=== PATIENT | male | born 2000 | race Caucasian/White ===

== ENCOUNTER 2024-02-21 02:54 | Inpatient (IN) ==
[2024-02-21] MEDS: KETOROLAC TROMETHAMINE 15 MG/ML VIAL IV ONE (03:34)
[2024-02-21] MEDS: HYDROmorphone INJ 0.5 MG/0.5 ML SYR IV PRN (03:34)
--- NOTE | 2024-02-21 03:36 | Emergency Department Note ---
Impression & Plan Right groin pain ED Provider Note NAME: SAM WOODS AGE: 23 SEX: Male INFORMANT: Patient ED PROVIDER(S): Tremaine Mcclure MD CHIEF COMPLAINT: Right groin pain PLAN: Disposition: Still a patient Outpatient prescription management: none Referral: [facility] MEDICAL DECISION MAKING: Patient presented because of right groin pain. He was quite uncomfortable. No signs of infection on examination. No hernia or abnormality on examination. IV was established. X-rays ordered. Patient was treated with Toradol and a dose of Dilaudid for symptom control. On reassessment the patient did feel better transiently but the pain came back. He is having difficulty moving his leg and ambulating. He had a leukocytosis on CBC and chemistries were unremarkable. Lyme negative. Trace hematuria was noted on urinalysis but on second questioning again the patient denied any urinary symptoms, flank pain, abdominal pain. He and I discussed MRI to further evaluate the acute hip/groin pain as well as a leukocytosis. Suspect musculoskeletal source. MRI is pending. Patient was signed out to Dr. Mesa at the change of shift. I refer you to the EMR for further details. Care/management discussed with: none Level of care consideration(s): Pending. Triage Nursing notes: reviewed and agree them. Vital Signs: reviewed and remarkable for no significant abnormalities Additional History obtained from: none Chronic Medical/Social Conditions affecting care: none Prior/ Outside/ External records reviewed: none Differential Diagnosis: Muscle tear, fracture, dislocation, neurovascular compromise, compartment syndrome, soft tissue injury, as well as other pathologies. Diagnostics, independently interpreted by me: ECG: none Cardiac Monitoring: Cardiac monitoring ordered by me: The patient was placed on continuous cardiac monitoring and observed. It revealed a normal sinus rhythm at 83 beats per minute without ectopy or evidence of dysrhythmia. Medical decision rules: none Imaging studies: X-ray imaging of the right hip is negative for fracture or dislocation. HPI: 23 year old Male arrives for evaluation of right groin pain. This started 2 days ago and is worsening. The patient also notes the following associated symptoms, limited range of motion of the right hip. Patient also notes difficulty walking secondary to the pain. The patient has tried 1 ibuprofen for relieving factors. Current pain is rated as 7/10. Patient states he was walking 2 days ago and fell to slight pop in his leg. No falls or direct trauma. Pt denies LOC, headache, fevers, chills, diaphoresis, visual changes, neck pain, chest pain, breathing difficulties, nausea, vomiting, abdominal pain, back pain, bowel or bladder problems, testicular pain, urinary symptoms, numbness, weakness, lymphadenopathy, rash, or other complaints.. PAST MEDICAL HISTORY: See Below, PAST SURGICAL HISTORY: See Below, SOCIAL HISTORY: See Below, [employer] student HOME MEDICATIONS: See Below ALLERGIES: See Below VITALS: See Below PHYSICAL EXAMINATION: GENERAL: Awake, alert, uncomfortable-appearing, in no distress HENT: Normocephalic, atraumatic. Oropharynx unremarkable. EYES: Normal conjunctiva. Sclera non-icteric. NECK: Inspection normal. Non-tender. Supple. No nuchal rigidity. FROM. No masses. RESPIRATORY: Clear to auscultation. No wheezes. No rales. Normal respiratory effort. CARDIAC: Normal rate. Normal rhythm. No murmurs. No rubs. Extremities warm and well perfused. Pulses equal. No JVD. GI: Soft, non-distended. No tenderness to palpation. No rebound or guarding. No masses. RECTAL: Deferred. : Normal male. Normal scrotum. No hernia. No testicular tenderness to palpation. MUSCULOSKELETAL: Atraumatic. No joint edema. Examination of the left lower extremity reveals no gross abnormalities. No associated tenderness palpation. Examination of the right lower extremity reveals an unremarkable foot, lower leg, knee and thigh. Palpation of the very proximal inner thigh around the abductors is tender. There is no erythema or fluctuance. No crepitus. Range of motion of the right hip is limited secondary to pain. There is no tenderness over the greater trochanter on the right side. LOWER EXTREMITIES: Calves are equal size bilaterally and non-tender. No edema. No discoloration. NEURO: Normal sensorium. No sensory or motor deficits noted. SKIN: No rash or jaundice noted. PROCEDURES: none CRITICAL CARE: none OBSERVATION NOTE: none Past Med/Surg History Problem List (Updated 02/21/24 @ 03:36 by Tremaine Mcclure MD) Right groin pain (Acute) Social History Smoking Status: Never smoker Preferred Language: Guatemalan Feels Safe at Home: Yes Allergies Allergies Allergy/AdvReac Type Severity Reaction Status Date / Time No Known Allergies Allergy Unverified 02/21/24 03:33 Results & Data (ED) Vital Signs Vital Signs - 24 hr 02/21/24 02:55 02/21/24 05:59 Temperature 36.8 C Temperature Source Oral Pulse Rate 83 Pulse Rate [Finger] 70 Pulse Rhythm Regular Pulse Rhythm [Finger] Regular Pulse Strength Normal Pulse Strength [Finger] Normal Respiratory Rate 20 17 Respiratory Effort / Characteristics Non-Labored Non-Labored Respiratory Depth Normal Normal Respiratory Pattern Regular Regular Blood Pressure 154/92 H Blood Pressure [Right Arm] 147/93 H Blood Pressure Mean 112 Blood Pressure Mean [Right Arm] 111 Blood Pressure Position Sitting Blood Pressure Position [Right Arm] Lying Pulse Oximetry 96 97 Oxygen Delivery Method Room Air Room Air Sepsis Recent Fever Within 48 Hours No Sepsis New/Unexplained Change in Mental Status No Sepsis Action Taken by Nursing No Action Required Laboratory Data 02/21/24 03:30 02/21/24 03:30 Lab Results 02/21/24 02/21/24 Range/Units 03:30 Unknown WBC 13.60 H (4.8-10.8) K/ul RBC 4.97 (4.70-6.10) M/uL Hgb 15.1 (14.0-18.0) g/dl Hct 43.5 (42.0-52.0) % MCV 87.5 (80.0-100.0) fL MCH 30.4 (25.0-34.0) pg MCHC 34.7 (32.0-36.0) g/dL RDW Std Deviation 39.8 (36.4-46.3) fL RDW Coeff of Bin 12.6 (11.5-14.5) % Plt Count 177 (130-400) K/uL MPV 11.7 (9.4-12.4) fL Immature Gran % (Auto) 0.6 % Neut % (Auto) 87.5 % Lymph % (Auto) 5.7 % [place] % (Auto) 6.0 % Eos % (Auto) 0.0 % Baso % (Auto) 0.2 % Neut # (Auto) 11.91 H (1.40-6.50) K/uL Lymph # (Auto) 0.77 L (1.20-3.40) K/uL [place] # (Auto) 0.81 H (0.11-0.59) K/uL Eos # (Auto) 0.00 (0.00-0.50) K/uL Baso # (Auto) 0.03 (0.00-0.20) K/uL Immature Gran # (Auto) 0.08 (0.01-0.20) K/uL Sodium 134 L (136-145) mmol/L Potassium 4.0 (3.5-5.1) mmol/L Chloride 105 (98-107) mmol/L Carbon Dioxide 20 L (21-32) mmol/L Anion Gap 9 (3-11) BUN 19 (6-23) mg/dl Creatinine 0.87 (0.6-1.4) mg/dl Est Cr Clr Drug Dosing 158.0 ml/min eGFR 122.80 BUN/Creatinine Ratio 21.8 H (10-20) Glucose 148 H (70-99(Fasting)) mg/dl Calcium 9.6 (8.6-10.3) mg/dl Total Bilirubin 1.2 H (0.2-1.0) mg/dl AST 14 (13-39) U/L ALT 10 (7-52) U/L Alkaline Phosphatase 99 (34-104) U/L Total Protein 7.7 (6.0-8.3) gm/dl Albumin 4.6 (3.4-5.0) gm/dl Globulin 3.1 (2.5-4.0) gm/dl Albumin/Globulin Ratio 1.5 (0.9-2) Urine Color Yellow Urine Appearance Cloudy A (Clear) Urine pH 5.5 (4.5-7.5) Ur Specific [place] 1.029 (1.000-1.030) Urine Protein Negative (Negative) Urine Glucose (UA) 1+ H (Negative) Urine Ketones Trace H (Negative) Urine Blood 1+ H (Negative) Urine Nitrite Negative (Negative) Urine Bilirubin Negative (Negative) Urine Urobilinogen Negative (Negative) Ur Leukocyte Esterase Negative (Negative) Urine WBC (Auto) 0-5 (0-5) /hpf Urine RBC (Auto) 3-5 H (0-2) /hpf U Hyaline Cast (Auto) 0-2 (0-2) /lpf U Epithel Cells (Auto) 0-2 (0-2) /hpf Urine Bacteria (Auto) None Seen (None Seen) Calcium Oxalate Crystal Present A (None Prsent) Urine Mucus Present A (None Prsent) Lyme Disease Screen Negative (Negative) Administered Medications Hydromorphone HCl (Hydromorphone Inj 0.5 Mg/0.5 Ml Syr) 0.5 mg IV Q20M PRN PRN Reason: Severe Pain (Rating 7,8,9,10) Stop: 03/06/24 03:15 Last Admin: 02/21/24 05:59 Dose: 0.5 mg Documented By: Admin: 02/21/24 03:34 Dose: 0.5 mg Documented By: CARMEN Discontinued Medications Ketorolac Tromethamine (Ketorolac Tromethamine 15 Mg/Ml Vial) 10 mg IV NOW ONE Stop: 02/21/24 03:17 Last Admin: 02/21/24 03:34 Dose: 10 mg Documented By: CARMEN Discharge Plan Visit Data Chief Complaint: Groin Pain Stated Complaint: GROIN PAIN ED Provider: Sam Mesa Discharge Problem: Right groin pain Forms Stand Alone Forms: [facility] Referrals Referrals: [facility] [Primary Care Provider] -
[2024-02-21 04:09] LABS: Albumin Globulin Ratio 1.5 (0.9-2); Albumin Level 4.6 gm/dl (3.4-5.0); BUN Creatinine Ratio 21.8 (10-20); Bilirubin,Total 1.2 mg/dl (0.2-1.0); Calcium 9.6 mg/dl (8.6-10.3); Globulin 3.1 gm/dl (2.5-4.0); Total Protein 7.7 gm/dl (6.0-8.3)
[2024-02-21 04:20] LABS: Basophils # (auto) 0.03 K/uL (0.00-0.20); Basophils % (auto) 0.2 %; Hematocrit (blood only) 43.5 % (42.0-52.0); Hemoglobin 15.1 g/dl (14.0-18.0); Immature Granulocytes # (auto) 0.08 K/uL (0.01-0.20); Immature Granulocytes % (auto) 0.6 %; Lymphocytes # (auto) 0.77 K/uL (1.20-3.40); Lymphocytes % (auto) 5.7 %; Mean Corpuscular Hemoglobin 30.4 pg (25.0-34.0); Mean Corpuscular Hgb Conc 34.7 g/dL (32.0-36.0); Mean Corpuscular Volume 87.5 fL (80.0-100.0); Mean Platelet Volume 11.7 fL (9.4-12.4); Monocytes # (auto) 0.81 K/uL (0.11-0.59); Neutrophils # (auto) 11.91 K/uL (1.40-6.50); Neutrophils % (auto) 87.5 %; Platelet Count 177 K/uL (130-400); RDW Coefficient of Variation 12.6 % (11.5-14.5); RDW Standard Deviation 39.8 fL (36.4-46.3); Red Blood Count 4.97 M/uL (4.70-6.10)
[2024-02-21 05:24] LABS: Appearance Urine Cloudy (Clear); Bacteria Urine Automated None Seen (None Seen); Bilirubin Urine Negative (Negative); Blood Urine 1+ (Negative); Cast Urine Automated 0-2 /lpf (0-2); Color Urine Yellow; Epithelial Cell Urine Auto 0-2 /hpf (0-2); Glucose Urine UA 1+ (Negative); Ketones Urine Trace (Negative); Leukocyte Esterase Urine Negative (Negative); Nitrite Urine Negative (Negative); Protein Urine Negative (Negative); Specific Gravity Urine 1.029 (1.000-1.030); Urobilinogen Urine Negative (Negative); WBC Urine Automated 0-5 /hpf (0-5); pH Urine 5.5 (4.5-7.5)
[2024-02-21 05:39] LABS: Calcium Oxalate Crystals Urine Present (None Prsent); Mucus Urine Present (None Prsent)
--- NOTE | 2024-02-21 06:36 | Emergency Department Note ---
ED Visit Note Patient is a 23-year-old male who presents to the ER for right hip pain. He was seen and evaluated by Dr. Mcclure. Labs were obtained and showed a mild leukocytosis. No significant anemia. BMP with mild hyponatremia at 134. LFTs bilirubin was unremarkable. Urine with a small amount of hematuria. X-rays were unremarkable and Lyme disease was negative. Patient was signed out to me awaiting MRI. Current disposition per Dr. Mcclure is if MRI shows no other findings other than fracture although doubtful with neg xry. patient will be discharged and follow-up as an outpatient with orthopedics. MRI resulted and showed no acute fracture and the only abnormality was a small right hip joint effusion with intra-articular debris. I discussed this with Dr. Elizabeth who reviewed the images and blood work. He believes that this is likely not infectious but with a slight elevation in sed CRP and white count he recommended IR aspiration. I spoke with Reginald Bender at the request of orthopedics and he will aspirate the right hip. Spoke with orthopedics to evaluate the patient and they will admit the patient due to worsening pain. They did request steroids. Steroids were given. Patient was admitted to orthopedics. Please see their note for further disposition. .
--- NOTE | 2024-02-21 07:01 | XRay Report ---
XR hip RT min 2V HISTORY: 23 years-old Male right groin pain acute pain of the right hip COMPARISON: None TECHNIQUE: 2 views of the right hip FINDINGS: No acute fracture, dislocation or avascular necrosis. Unremarkable soft tissues. IMPRESSION: No acute fracture or dislocation. ACT 112: Negative or not required by law. The above report was generated using voice recognition software. It may contain grammatical, syntax o r spelling errors. Electronically signed by: Easton Parra M.D. 02/21/2024 6:59 AM
--- NOTE | 2024-02-21 08:43 | Magnetic Resonance Report ---
MR hip RT wo con CLINICAL HISTORY: 23 years-old Male with severe right hip/groin pain, elevated WBC. COMPARISON: Radiographs of same day. TECHNIQUE: Multiplanar, multi sequence MRI of the right hip was performed without intravenous contras t. FINDINGS: LABRUM: To the extent that it is visualized, the acetabluar labrum is normal. There is no evidence for a labral tear, chondrolabral separation or paralabral cyst. BONE MARROW: Bone marrow signal is within normal limits. No evidence of avascular necrosis, fractur e or transient osteoporosis. BURSAE: There is no evidence for iliopsoas or trochanteric bursitis. HIP JOINT: No significant joint space narrowing or chondromalacia. There is a small right hip joint effusion with intra-articular debris. Trace edema noted along the inferior joint capsule, likely rela fabiana to the joint effusion. MUSCLES: Muscular signal and morphology is within normal limits. SCIATIC NERVE: The morphology and signal characteristics of the sciatic nerve appear normal. IMPRESSION: 1. No acute fracture, bone marrow edema, stress reaction or avascular necrosis. 2. The visualized tendons, ligaments and acetabular labrum appear intact. 3. Small right hip joint effusion with intra-articular debris. This is nonspecific and should be nesha elated with patient history and laboratory analysis. ACT 112: Negative or not required by law. The above report was generated using voice recognition software. It may contain grammatical, syntax o r spelling errors. Electronically signed by: Easton Parra M.D. 02/21/2024 8:42 AM
[2024-02-21] MEDS: predniSONE 50 MG TAB PO STA (09:20)
[2024-02-21 09:28] LABS: C Reactive Protein 0.79 mg/dl (0-0.5)
--- NOTE | 2024-02-21 13:59 | Fluoroscopy Report ---
Fluoroscopic guided right hip joint injection/aspiration INDICATION: Right hip pain; right hip joint effusion PROCEDURE: Procedure and risks were explained. Informed consent was obtained. A final timeout was com pleted. The patient was placed supine on the fluoroscopic exam table. The right hip was prepped and d raped in sterile fashion. 1% lidocaine was utilized for skin anesthesia. Utilizing fluoroscopic guidance, a 20-gauge spinal needle was advanced into the right hip joint. Init ial aspiration did not yield any joint fluid. Approximately 1 mL of iodinated contrast was injected c onfirming our intra-articular needle position. Permanent fluoroscopic spot images and loops were obta ined. Next, approximately 4 mL of bloody joint fluid was aspirated and sent to the lab for analysis. The needle was removed and Band-Aid applied. The patient tolerated the procedure well. Total fluoroscopy time 14 seconds. Study dose is 8.22 mGy. IMPRESSION: Right hip joint injection/aspiration as detailed above. Performed, dictated, and signed by Neil Bender PA-C; to be co-signed by Dr. Mir Narayanan. Electronically signed by: Mir Narayanan M.D. 02/21/2024 5:13 PM
--- NOTE | 2024-02-21 14:27 | Orthopedic Consultation ---
Date of Consultation February 21, 2024 Assessment & Plan (1) Effusion of hip: Discussed with the patient and his mother that he has an effusion in his right hip. His physical exam and laboratory results are most consistent with toxic synovitis likely secondary to a recent gastrointestinal illness. However, we did request an aspiration in order to rule out infection. This was done this afternoon. We will admit him to the hospital and follow the results of the aspiration. Will keep him n.p.o. until we know for sure were not doing surgery on his right hip later today. (2) Right groin pain: (3) Acute hip pain: History of Present Illness History of Present Illness 23 year old Male arrives for evaluation of right groin pain. This started 2 days ago and is worsening. The patient also notes the following associated symp toms, limited range of motion of the right hip. Patient also notes difficulty walking secondary to the pain. The patient has tried 1 ibuprofen for relieving factors. Current pain is rated as 7/10. Patient states he was walking 2 days ago and felt a slight pop in his leg. No falls or direct trauma. Pt denies LOC, headache, fevers, chills, diaphoresis, visual changes, neck pain, chest pain, breathing difficulties, nausea, vomiting, abdominal pain, back pain, bowel or bladder problems, testicular pain, urinary symptoms, numbness, weakness, lymphadenopathy, rash, or other complaints. Orthopedics was consulted for evaluation and management. Patient was seen and examined the emergency room. He reports he did have a gastrointestinal illness about 3 weeks ago with diarrhea that is since resolved. No other recent illnesses. Has not had any fevers or chills. He has been able to walk on it although with difficulty. No numbness or tingling down the leg. Allergies Allergy/AdvReac Type Severity Reaction Status Date / Time No Known Allergies Allergy Unverified 02/21/24 03:33 Home Medications Medication Instructions Recorded Confirmed Type sertraline 100 mg tablet 100 mg PO QAM 02/21/24 02/21/24 History Patient History Social History Smoking Status: Never smoker Preferred Language: Gibralt[place] Feels Safe at Home: Yes Physical Exam Physical Exam: In general he does not appear systemically ill. Alert and oriented x 3. Right hip exam reveals the patient to be unable to do a straight leg raise. Actively he can flex the hip to about 45 degrees. Passively I can get him to about 70 degrees. External rotation is about 35 degrees, internal rotation about 20 degrees. He tolerates gentle circumduction of the hip with only mild discomfort. He is distally neurovascularly intact firing EHL, FHL he ate, tib ant and gastrocsoleus. Sensory intact to light touch dorsal and plantar aspects of the foot. Palpable dorsalis pedis and posterior tibial pulses. Skin is warm and well-perfused. Results & Data Vital Signs (Past 12 Hours) Vital Signs Temp Pulse Pulse Resp BP BP Pulse Ox 02/21/24 12:42 69 02/21/24 10:31 75 17 147/78 H 96 02/21/24 10:00 68 22 122/99 98 02/21/24 09:31 68 16 157/85 H 98 02/21/24 09:01 63 15 148/81 H 99 02/21/24 08:30 66 19 97 02/21/24 08:14 73 02/21/24 08:00 71 15 140/83 95 02/21/24 07:58 74 16 152/87 H 95 02/21/24 05:59 70 17 147/93 H 97 02/21/24 02:55 36.8 C 83 20 154/92 H 96 O2 Del Method 02/21/24 12:42 02/21/24 10:31 02/21/24 10:00 02/21/24 09:31 02/21/24 09:01 02/21/24 08:30 02/21/24 08:14 02/21/24 08:00 02/21/24 07:58 Room Air 02/21/24 05:59 Room Air 02/21/24 02:55 Room Air Laboratory Results Laboratory Results - last 24 hr 02/21/24 02/21/24 03:30 Unknown WBC 13.60 H RBC 4.97 Hgb 15.1 Hct 43.5 MCV 87.5 MCH 30.4 MCHC 34.7 RDW Std Deviation 39.8 RDW Coeff of Bin 12.6 Plt Count 177 MPV 11.7 Immature Gran % (Auto) 0.6 Neut % (Auto) 87.5 Lymph % (Auto) 5.7 [place] % (Auto) 6.0 Eos % (Auto) 0.0 Baso % (Auto) 0.2 Neut # (Auto) 11.91 H Lymph # (Auto) 0.77 L [place] # (Auto) 0.81 H Eos # (Auto) 0.00 Baso # (Auto) 0.03 Immature Gran # (Auto) 0.08 ESR 24 H Sodium 134 L Potassium 4.0 Chloride 105 Carbon Dioxide 20 L Anion Gap 9 BUN 19 Creatinine 0.87 Est Cr Clr Drug Dosing 158.0 eGFR 122.80 BUN/Creatinine Ratio 21.8 H Glucose 148 H Calcium 9.6 Total Bilirubin 1.2 H AST 14 ALT 10 Alkaline Phosphatase 99 C-Reactive Protein 0.79 H Total Protein 7.7 Albumin 4.6 Globulin 3.1 Albumin/Globulin Ratio 1.5 Urine Color Yellow Urine Appearance Cloudy A Urine pH 5.5 Ur Specific [place] 1.029 Urine Protein Negative Urine Glucose (UA) 1+ H Urine Ketones Trace H Urine Blood 1+ H Urine Nitrite Negative Urine Bilirubin Negative Urine Urobilinogen Negative Ur Leukocyte Esterase Negative Urine WBC (Auto) 0-5 Urine RBC (Auto) 3-5 H U Hyaline Cast (Auto) 0-2 U Epithel Cells (Auto) 0-2 Urine Bacteria (Auto) None Seen Calcium Oxalate Crystal Present A Urine Mucus Present A Fluid Comment Synovial Source Pending Synovial Color Pending Synovial Appearance Pending Synovial Crystals Pending Lyme Disease Screen Negative ESR slightly elevated at 24, CRP slightly elevated at 0.79. White count slightly elevated 13.6. Aspiration results pending Diagnostic Findings MRI of the right hip done earlier today independently interpreted by me showed evidence of a right hip effusion. No fracture. No labrum tear. Some low signal punctate debris in the inferior aspect of the hip. Do not see a lot of synovitis.
[2024-02-21] MEDS ORDERED: ONDANSETRON INJ 2 MG/ML 2 ML VIAL IV PRN (14:38)
[2024-02-21] MEDS ORDERED: oxyCODONE/ACETAMINOPHEN 5mg/325mg TAB PO PRN (14:38)
[2024-02-21] MEDS ORDERED: KETOROLAC 30 MG/ML VIAL IV PRN (14:38)
[2024-02-21 14:42] LABS: Appearance Synovial Fluid Hazy; Color Synovial Fluid Red; Mononuclear WBC Synovial 7.2 %; Polynuclear WBC Synovial 92.8 %; RBC Synovial Fluid Auto 540000 /uL; Source Synovial Fluid Hip; WBC Synovial Fluid Auto 62860 /ul (0-200)
[2024-02-21] MEDS: DOCUSATE SODIUM 100 MG CAP PO SCH (20:59)
--- NOTE | 2024-02-22 06:52 | Orthopedic Progress Note ---
Date of Service February 22, 2024 Assessment & Plan (1) Effusion of hip: Plan: -Discussed with the patient Gram stain was negative for any organisms. -The patient may weight-bear as tolerated with use of crutches or walker -Patient will remain n.p.o. at this time until further evaluation and culture results -We will follow-up for further culture results which hopefully will result later today -Clinically the patient is having less pain than he was having yesterday however would like to see more definitive culture results, still possibility patient will require irrigation and debridement of his right hip -Patient will be discussed with Dr. Pradhan Admission and Anticipated Discharge Date Admission Date: February 21, 2024 Orthopedic Progress Note Subjective: Patient seen and evaluated at bedside. He is currently resting comfortably in bed. He is in no acute distress. He states that the pain in his hip is getting better. He denies any numbness or tingling in the right lower extremity. He denies any fevers or chills, he denies any chest pain or shortness of breath. Overall he feels like the hip is getting slightly better. He has not been up out of bed or put any weight on the leg yet. Objective: Right lower extremity exam: Skin about the right lower extremity is clean dry and intact without any erythema, palpable warmth, or effusion The patient is able to actively flex his knee to approximate the 100 degrees, hip flexion to approximately 80 degrees without significant hip pain. Passively I am able to flex him to about 100 degrees at the hip with external rotation about 30 degrees internal wishes of about 20 degrees with mild pain at most. No pain with logroll With hip flexed about 100 degrees and passive circumduction patient has minimal to mild pain at most. Sensation intact light touch L4-S1 dermatomes DP/PT pulses 1+ GS/TA/EHL/FHL 5/5 strength
[2024-02-22 07:37] VITALS: BP 142/77; PULSE 65; RESP 18; TEMP 99.5; O2SAT 99
[2024-02-22] MEDS: SERTRALINE HCL 100 MG TABLET PO SCH (09:45)
--- NOTE | 2024-02-22 12:53 | Discharge Summary ---
Date of Service February 22, 2024 Admission HPI Per Admitting Provider 23 year old Male arrives for evaluation of right groin pain. This started 2 days ago and is worsening. The patient also notes the following associated symptoms, limited range of motion of the right hip. Patient also notes difficulty walking secondary to the pain. The patient has tried 1 ibuprofen for relieving factors. Current pain is rated as 7/10. Patient states he was walking 2 days ago and felt a slight pop in his leg. No falls or direct trauma. Pt denies LOC, headache, fevers, chills, diaphoresis, visual changes, neck pain, chest pain, breathing difficulties, nausea, vomiting, abdominal pain, back pain, bowel or bladder problems, testicular pain, urinary symptoms, numbness, weakness, lymphadenopathy, rash, or other complaints. Orthopedics was consulted for evaluation and management. Patient was seen and examined the emergency room. He reports he did have a gastrointestinal illness about 3 weeks ago with diarrhea that is since resolved. No other recent illnesses. Has not had any fevers or chills. He has been able to walk on it although with difficulty. No numbness or tingling down the leg. Admission Exam Per Admitting Provider In general he does not appear systemically ill. Alert and oriented x 3. Right hip exam reveals the patient to be unable to do a straight leg raise. Actively he can flex the hip to about 45 degrees. Passively I can get him to about 70 degrees. External rotation is about 35 degrees, internal rotation about 20 degrees. He tolerates gentle circumduction of the hip with only mild discomfort. He is distally neurovascularly intact firing EHL, FHL he ate, tib ant and gastrocsoleus. Sensory intact to light touch dorsal and plantar aspects of the foot. Palpable dorsalis pedis and posterior tibial pulses. Skin is warm and well-perfused. Principal Diagnosis Right Hip Pain Discharge Exam Objective: Right lower extremity exam: Skin about the right lower extremity is clean dry and intact without any erythema, palpable warmth, or effusion The patient is able to actively flex his knee to approximate the 100 degrees, hip flexion to approximately 80 degrees without significant hip pain. Passively I am able to flex him to about 100 degrees at the hip with external rotation about 30 degrees internal wishes of about 20 degrees with mild pain at most. No pain with logroll With hip flexed about 100 degrees and passive circumduction patient has minimal to mild pain at most. Sensation intact light touch L4-S1 dermatomes DP/PT pulses 1+ GS/TA/EHL/FHL 5/5 strength Discharge Data Allergies Allergy/AdvReac Type Severity Reaction Status Date / Time No Known Allergies Allergy Unverified 02/21/24 03:33 Consultations 02/21/24 11:56 Consult Orthopedic Surgery Stat 02/21/24 12:43 ED Decision to Admit Stat Ordered Studies 02/21/24 05:49 MR hip RT wo con Stat 02/21/24 12:56 Fluoro hip [IR inj majr joint sh,hip,kn RT] Stat Hospital Course (1) Effusion of hip: Gram stain was negative for any organisms. Cultures were negative at 24 hours, his hip ROM was much improved after the aspiration (and no antibiotics). He was discharged home with crutches, WBAT, and is to follow-up in 1 week. Total Time Total Time Spent Total Time Spent (In Minutes): 10 Discharge Plan Discharge Items Patient Disposition: Home - Self-Care Reason For Visit: RIGHT HIP PAIN Discharge Diagnosis: Right hip pain Activity: As commented below Lifting: None Sexual Activity: When tolerated Exercise/Sports: Wait until after follow-up appointment Driving/Machine Use: Resume 3 days after discharge Weightbearing: Right weightbearing Weightbearing Comment: as tolerated Non-emergency contact: Surgeon Call non-emergency contact if: you have any medication questions, your pain is not controlled, your temperature is above 101.5, your wound has increased drainage and your wound pain has increased Follow-up/Referrals: [facility] [Primary Care Provider] - (PLEASE FOLLOW UP WITH [facility] IN 7-10 DAYS.) Conrad Pradhan MD [Physician] - (Please call office to schedule follow-up appointment ) Diet: Regular Addtl Attending Provider Instructions: Post-operative Instructions Dear Patient and Family/Friends, Before you are discharged from the hospital, it is important to know what to expect when you get home after surgery. To that end, we have created this sheet of discharge instructions which covers many commonly asked questions. Make sure you go through this sheet in its entirety with your nurse before you are discharged. Please note that we will go over the specifics of your surgery and recovery when you return for your first post-operative visit. Sincerely, Dr. Pradhan Pain Expect to be in a fair amount of pain after surgery. Remember, our goal is not to eliminate your pain, but to make it tolerable. It is a good idea to stay ahead of your pain by taking the medications you were prescribed once you get home. Typically, the pain starts improving 3-7 days after surgery. You should start weaning off the narcotic pain medication (oxycodone, hydrocodone, hydromorphone, morphine) as soon as your pain improves. Please call our office if your pain is not adequately controlled. Ice Ice your operative site at least 5 times a day for 15-30 minutes at a time. Make sure you have a thin cloth between the ice or cooling unit and your skin to prevent drake bite. This is especially important if you received a nerve block. Continue icing your operative site for the first 5-7 days after surgery, then as needed. Diet/Nausea/Vomiting Start by drinking clear liquids and eating crackers. If you can tolerate this, then you may resume your normal diet. If you feel nauseated or vomit, take Zofran/ondansetron (if prescribed). Please call our office if you have intractable nausea or vomiting, or, if after hours, you may go to the Emergency Room for help. Constipation Constipation is a common side effect of narcotic pain medication. If you have not had a bowel movement within 2 days after surgery, we recommend purchasing an over the counter laxative such as Milk of Magnesia, Dulcolax, or Miralax from a local pharmacy, and taking it as instructed. Call our clinic if any questions. Slings and Braces If you were placed in a sling or brace, it must be worn at all times, including sleep. You may remove your sling or brace for physical therapy, home exercises, and showering. The length of time you will be in your brace and range of motion restrictions depends on what surgery you had; these details will be reviewed at your first post-operative appointment. Nerve block The anesthesia team sometimes places a nerve block to help with post-operative pain control. This results in significant numbness and inability to move the extremity. The nerve block usually wears off in 8-12 hours, but sometimes can last up to 24 hours. Please call our office if you are still unable to move your extremity after 24 hours, unless you received a pain pump to take home. Nerve blocks typically wear off quickly, so start taking pain medication as soon as you start feeling soreness near your surgical site. Weight bearing and Range of Motion. Do not bear any weight through your operative extremity immediately after surgery. If you had upper extremity surgery, do not lift anything with that arm. If you are in a knee brace, keep it locked in place until your follow-up. We will discuss your weight bearing, range of motion, and lifting restrictions in detail at your first post-operative appointment. Continuous Passive Motion (CPM) Machine If you were prescribed a CPM machine, it will start after your first post- operative appointment, at which time we will give you instructions on the range of motion settings and duration of treatment Physical therapy You will be given a prescription for physical therapy or occupational therapy at your first post-operative appointment. Typically, patients start therapy within 1 week of surgery Wound care and showering We will inspect your wound at your first post-operative visit, and may do a dr kaitlin change at that time. Most patients will be in a water-proof dressing that is removed 14 days after surgery. It is normal to see some dried blood on the dressing. Do not remove your dressing, paper strips or sutures yourself unless you are given permission. Showering is allowed the day after surgery. Do not scrub or remove any dressings. The wound should not be submerged underwater (i.e. in a bathtub or pool) until 4 weeks after surgery ROSIO stockings If you were given white stockings, these are to be worn at all times except to shower (on both legs) for the first 2 weeks after surgery. Driving You may not drive while taking narcotic pain medication or while in a cast, splint, sling or brace. You, the patient, need to make the final determination about when you are safe to drive, however, the earliest you may consider driving after surgery is below: Hand/Wrist/Elbow Surgery: 3 days Shoulder Surgery: 2 weeks Hip,/Knee/Ankle Surgery: 4 weeks Fracture repair: 6 weeks Return to Work Your return to work depends on what surgery was done and what type of work you do. Please bring any paperwork your employer needs completed to your first post-operative visit. Also, bring a description of your job duties, as this helps us to understand what risks you may face at work. Travel Avoid long distance travel (greater than 1 hour) in airplanes and cars for the first 6 weeks after surgery. If you must travel, you need to have a Doppler ultrasound done before you travel to rule out a blood clot in your legs. Follow-up You should have a follow-up appointment already scheduled in [address] Pradhan (02/29/24 at 11:15. If not, please contact our office to make this appointment before you leave the hospital. When to call the office It is normal to have swelling and bruising in the limb that was operated on. This will improve with time. It is also normal to have fevers for the first 2 days after surgery. Reasons you should call your doctor include: Uncontrolled pain; Nausea, vomiting, or constipation that does not improve with medication; Fevers over 101.5, chills, sweats; Drainage or bleeding from the wound; Foul odor; Spreading areas of redness; Any other concerns. Contact Information Please call Dr. Pradhan's office at [phone] with any concerns. Pending Studies at Discharge: No Stand-Alone Forms: [facility] E-[facility], Smoking Cessation Medications and DC Order Prescriptions: New oxycodone-acetaminophen [Percocet] 5-325 mg Tablet 1 - 2 tab PO Q4H MDD ongoing Tx PRN (Reason: pain) Qty: 20 0RF Continued sertraline 100 mg tablet 100 mg PO QAM Discharge Orders: Discharge Order (Routine); Ordered 02/22/24 Ordered By: Steven Mohr Admission Data Admit Date/Time: 02/21/24 12:43 Attending Provider: Conrad Pradhan Admit Provider: Conrad Pradhan Primary Care Provider: [facility] Other Providers: Conrad Pradhan Other Interventions: Discharge Summary Assessment (RN) Last Done: 02/22/24 13:07
[2024-02-22] MEDS: ceFAZolin 2000MG 2,000 MG/15 ML SYR IV SCH (13:08)
== END 2024-02-22 14:40 | disposition home or self-care (01) | DRG 566 ==
LOC: ED 02:54 → EDINP 12:43 → 3W 14:38